=== PATIENT | male | born 1995 | race Caucasian/White ===

== ENCOUNTER 2019-12-08 17:51 | Emergency (ER) | payer OTHER, BC ==
[~2019-12-08] VITALS: Ht 172.7 cm; Wt 68.9 kg
[2019-12-08 18:18] VITALS: Ht 172.7 cm; Wt 68.9 kg
[2019-12-08 19:57] VITALS: BP 121/81
== END 2019-12-08 20:28 | disposition home or self-care (01) ==
LOC: ED 17:51
DX: S39.012A Strain of muscle, fascia and tendon of lower back, initial encounter (principal); S60.212A Contusion of left wrist, initial encounter; S20.212A Contusion of left front wall of thorax, initial encounter; S20.211A Contusion of right front wall of thorax, initial encounter; V49.9XXA Car occupant (driver) (passenger) injured in unspecified traffic accident, initial encounter; Y93.89 Activity, other specified; Y92.89 Other specified places as the place of occurrence of the external cause; Y99.8 Other external cause status